=== PATIENT | male | born 1995 | race Caucasian/White ===

== ENCOUNTER 2025-01-10 06:52 | Day surgery (SDC) | payer OTHER ==
[2025-01-10] MEDS ORDERED: Midazolam 1 MG/ML 2 ML SDV IV ONE (06:53)
[2025-01-10] MEDS ORDERED: Propofol 200 MG/20 ML SDV IV ONE (06:53)
[2025-01-10] MEDS ORDERED: Lidocaine 2% 100 MG/5 ML Syringe IVPUSH ONE (06:53)
[2025-01-10] MEDS ORDERED: Sodium Chloride 0.9% 10 ML Syringe FLUSH PRN (07:00)
[2025-01-10] MEDS: Lactated Ringers 1,000 ML IV SCH (07:48)
[2025-01-10] MEDS: Simethicone Drops 40 MG/0.6 ML 30 ML Bottle ONE (08:36)
== END 2025-01-10 10:00 | disposition home or self-care (01) ==
LOC: FB.SDS 06:52
PROVIDERS: ATTEND Surgery
DX: K62.5 Hemorrhage of anus and rectum (principal); K40.90 Unilateral inguinal hernia, without obstruction or gangrene, not specified as recurrent; Z80.0 Family history of malignant neoplasm of digestive organs
CPT/HCPCS: 45378; A9270; J2250; J2704; J7120; 00811

== ENCOUNTER 2025-02-21 07:16 | Day surgery (SDC) | payer OTHER ==
[~2025-02-21 07:16] MED LIST: Lactated Ringers 1,000 ML IV SCH; Sodium Chloride 0.9% 10 ML Syringe FLUSH PRN
[2025-02-21] MEDS ORDERED: Propofol 200 MG/20 ML SDV IV ONE (07:17)
[2025-02-21] MEDS ORDERED: fentaNYL 100 MCG/2 ML SDV IV ONE (07:17)
[2025-02-21] MEDS ORDERED: Midazolam 1 MG/ML 2 ML SDV IV ONE (07:17)
[2025-02-21] MEDS ORDERED: Sodium Chloride 0.9% 10 ML Syringe FLUSH PRN (07:30)
[2025-02-21] MEDS: Lactated Ringers 1,000 ML IV SCH (08:05)
[2025-02-21] MEDS: Simethicone Drops 40 MG/0.6 ML 30 ML Bottle ONE (08:56)
== END 2025-02-21 10:06 | disposition home or self-care (01) ==
LOC: FB.SDS 07:16
PROVIDERS: ATTEND Surgery
DX: K29.80 Duodenitis without bleeding (principal); K31.A0 Gastric intestinal metaplasia, unspecified; K22.70 Barrett's esophagus without dysplasia; K22.2 Esophageal obstruction; K21.00 Gastro-esophageal reflux disease with esophagitis, without bleeding; E66.9 Obesity, unspecified; Z68.37 Body mass index [BMI] 37.0-37.9, adult; Z79.899 Other long term (current) drug therapy
CPT/HCPCS: 00731; 88305; 88312; A9270-GY; J2250; J2704; J3010; J7120